=== PATIENT | male | born 1940 | race Caucasian/White ===

== ENCOUNTER 2022-01-16 01:44 | Day surgery (SDC) | payer MEDICARE, SELFPAY ==
[2022-01-13 17:16] VITALS: BMI 25.1
[2022-01-16 09:15] VITALS: BP 181/79; PULSE 61; RESP 19; O2SAT 100
[2022-01-16 09:31] VITALS: BP 165/81; PULSE 61; RESP 19; TEMP 36.7; O2SAT 99; BMI 25.4
--- NOTE | 2022-01-16 10:36 | WPDCARDPROC ---
Cardiac Cath Procedure Note Date of procedure:: 01/16/22 Performing physician:: Anand Thompson MD Indication:: Recurrent syncope Brief clinical history:: This is an 81-year-old man reporting history of recurrent syncope of unknown determined etiology. For further evaluation of this a loop recorder implant has been recommended. 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 He had been anticoagulated with PICC with apixaban. This has been held for 3 days prior to this procedure. The left anterior chest wall was prepped and draped in the usual fashion. A bret was made in the 4th intercostal space in the midclavicular line. He received 1% lidocaine injected for local anesthesia in this area. Following this the bio monitor device was implanted uneventfully using the supplied blade for the initial stab at the puncture site and then placed in the subcutaneous tract inferior to this uneventfully. The mild oozing at the insertion site was controlled with direct manual pressure he then received a drop a bio glue and a bandage over the top of that. Findings:: As above Conclusion:: Uncomplicated implantation of Biot[employer] bio monitor device for evaluation of recurrent syncope in this 81-year-old patient. Anand Thompson MD [facility]
[2022-01-16 10:45] VITALS: BP 200/90; PULSE 67; RESP 18; O2SAT 100
[2022-01-16] MEDS: amLODIPine BESYLATE 5 MG TABLET PO (11:36)
[2022-01-16 11:44] VITALS: BP 186/89; PULSE 64; RESP 18; O2SAT 95
== END 2022-01-16 12:07 | disposition home or self-care (01) ==
PROVIDERS: PCP Family Medicine; Visit Provider Specialist
PROC: (CPT 33285; principal; 2022-01-16 10:00)
DX: R55 Syncope and collapse (principal); I47.1 Supraventricular tachycardia; I25.10 Atherosclerotic heart disease of native coronary artery without angina pectoris; I48.0 Paroxysmal atrial fibrillation; Z79.01 Long term (current) use of anticoagulants
CPT/HCPCS: 33285; A9270; C1764

== ENCOUNTER 2022-01-25 13:56 | Outpatient (CLI) | payer MEDICARE, SELFPAY ==
[2022-01-25 14:25] LABS: Albumin Level 4.2 g/dL (3.5-5.1); Alkaline Phosphatase 82 U/L (38-126); Anion Gap 7 mmol/L (8-16); Aspartate Amino Transferase 25 U/L (17-59); Bilirubin,Total 0.4 mg/dL (0.2-1.3); Blood Urea Nitrogen 16 mg/dL (9-20); Calcium 8.7 mg/dL (8.4-10.2); Carbon Dioxide 30 mmol/L (22-30); Chloride 103 mmol/L (98-107); Estimated Glomerular Filt Rate > 60; Glucose 112 mg/dL (65-110); Potassium 4.3 mmol/L (3.4-5.0); Sodium 140 mmol/L (137-145)
[2022-01-25 14:48] LABS: Alanine Aminotransferase < 4 U/L (4-50)
== END 2022-01-25 13:57 | disposition home or self-care (01) ==
LOC: ANHLAB 13:59
PROVIDERS: PCP Family Medicine; Visit Provider Family Medicine
DX: I11.9 Hypertensive heart disease without heart failure (principal)
CPT/HCPCS: 36415; 80053

== ENCOUNTER 2025-06-23 13:24 | Outpatient (CLI) | payer OTHER, SELFPAY ==
--- NOTE | ~2025-06-23 | CT_ITS ---
CT of the Abdomen and Pelvis: Indication: Abdominal pain Technique: 2.5 mm axial scans were obtained through the abdomen and pelvis following intravenous adm inistration of 100 cc of Omnipaque 350. Dose reduction technique was used on this scan by utilizing a utomated exposure control and iterative reconstruction technique. The dose-length product (DLP) was 6 38.21 mGy-cm. Findings: Scans through the lung bases are unremarkable. Probable cardiomegaly. The liver, spleen, pancreas, gallbladder, adrenals and kidneys are within normal limits. Infrarenal a bdominal aortic aneurysm measures 3 cm in diameter. There is extensive atherosclerotic calcification the aorta and iliac vessels. Left common iliac stent present. No lymphadenopathy. No bowel obstruction or bowel wall thickening. There is no evidence to suggest acute appendicitis. Images through the pelvis were performed. Urinary bladder unremarkable. No pelvic mass evident. No as cites. Impression: No acute abnormality. 3 cm infrarenal abdominal aortic aneurysm. Reviewed, dictated and finalized at location . Impression: No acute abnormality. 3 cm infrarenal abdominal aortic aneurysm.
--- NOTE | ~2025-06-23 | US_ITS ---
Testicular ultrasound with doppler. Indication: Right lower quadrant pain. Technique: Real-time sonography the scrotum was performed. Color flow Doppler and Doppler spectral an alysis were performed. Findings: The testes are homogeneous in echotexture bilaterally. There is no evidence of an intrates ticular mass. The right testis measures 2.3 x 1.6 x 2.7 cm and the left 2.1 x 1.8 x 2.0 cm. There is color-flow seen to both testes. Arterial and venous spectral waveforms are seen in both testes. There is no sonographic evidence of torsion. The head of the epididymis is visualized bilaterally and is within normal limits. Impression: Unremarkable exam. No evidence of torsion. Reviewed, dictated and finalized at location . Impression: Unremarkable exam. No evidence of torsion.
[2025-06-23 13:47] LABS: Estimated Glomerular Filt Rate > 60
== END 2025-06-23 13:25 | disposition home or self-care (01) ==
LOC: MICIMG 13:25
PROVIDERS: PCP Family Medicine; Visit Provider Physician Assistant
DX: R93.813 Abnormal radiologic findings on diagnostic imaging of testicles, bilateral (principal); I71.43 Infrarenal abdominal aortic aneurysm, without rupture; R10.31 Right lower quadrant pain
CPT/HCPCS: 74177; 76870; 93976; Q9967